=== PATIENT | female | born 1990 | race African-American/Black ===

== ENCOUNTER 2017-12-19 14:18 | Day surgery (SDC) | payer SELFPAY ==
[~2017-12-19 14:18] MED LIST: SUCCINYLCHOLINE CHLORIDE INJ 200 MG/10 ML VIAL ONE
--- NOTE | 2017-12-19 16:12 | ER Document Report ---
ED General - General Chief Complaint: Abscess Stated Complaint: ABSCESS Time Seen by Provider: 12/19/17 15:39 Mode of Arrival: Ambulatory Information source: Patient Notes: Patient is a 27 year old female with PMHx of HTN, DM (not currently on any medication), Hx of MRSA who presents with abscess to beneath both breats that started 3 days ago with associated yellow drainage. She describes the pain as burning. Denies fever, chills, headache, lethargy, n/v/d. She has not taken any medication for this. She has had problems with mutiple abscess requiring drainage in OR, last was in 2014 which was + MRSA and required PICC line for continued antibiotics. Last meal was yesterday, she has had nothing to eat or drink today. TRAVEL OUTSIDE OF THE [place] IN LAST 30 DAYS: No - Related Data Allergies/Adverse Reactions: No Known Allergies Allergy (Verified 07/20/15 09:40) Past Medical History - Social History Smoking Status: Current Every Day Smoker Family History: Reviewed & Not Pertinent, Other - Father: Is positive for diabetes type II. Maternal grandmother: Has breast cancer. The patient's mother is alive without any health problems. - Past Medical History Cardiac Medical History: Denies: Hx Coronary Artery Disease, Hx Heart Attack, Hx Hypertension Pulmonary Medical History: Denies: Hx Asthma, Hx Bronchitis, Hx COPD, Hx Pneumonia, Hx Tuberculosis Neurological Medical History: Denies: Hx Cerebrovascular Accident, Hx Seizures Endocrine Medical History: Reports: Hx Diabetes Mellitus Type 2 Musculoskeltal Medical History: Denies Hx Arthritis Skin Medical History: Reports Hx Cellulitis - abscesses Psychiatric Medical History: Reports: Hx Depression Past Surgical History: Reports: Hx Breast Surgery - cyst/abscess removal. Denies: Hx Hysterectomy, Hx Pacemaker - Immunizations Hx Diphtheria, Pertussis, Tetanus Vaccination: No Review of Systems - Review of Systems Constitutional: See HPI EENT: No symptoms reported Cardiovascular: No symptoms reported Respiratory: No symptoms reported Gastrointestinal: No symptoms reported Genitourinary: No symptoms reported Female Genitourinary: No symptoms reported Musculoskeletal: No symptoms reported Skin: See HPI Hematologic/Lymphatic: No symptoms reported Neurological/Psychological: No symptoms reported Physical Exam - Vital signs Vitals: Temp Pulse Resp BP Pulse Ox 98.5 F 91 20 119/71 93 12/19/17 14:22 12/19/17 14:22 12/19/17 14:22 12/19/17 14:22 12/19/17 14:22 - Notes Notes: PHYSICAL EXAM: CONSTITUTIONAL: Alert and oriented, well-appearing and in no acute distress. HENT: Normocephalic, atraumatic. Nares clear without erythema, septal hematoma or deviation, airway patent. Oropharynx clear without erythema, tonsilar exudate or malocclusion. Trachea midline. Uvula midline. Moist mucous membranes. EYES: Pupils equal round and reactive to light, EOM intact. Sclera anicteric, conjunctiva are normal. No entrapment. NECK: supple without lymphadenopathy. No midline tenderness or paraspinous muscle spasms. No step-offs or deformities. ROM intact. HEART: Regular rate and rhythm without murmurs. LUNGS: CTAB and equal. No wheezes, rales or rhonchi. BACK: nontender, no paraspinous spasm, 5+/5 strengths, DTRs 2+, SLR -. EXTREMITIES: Normal range of motion, no pitting edema. No cyanosis. Cap Refill < 3 seconds. NEURO: Cranial nerves grossly intact. Normal sensory/motor exams. PSYCH: Normal mood, normal affect. SKIN: Warm and dry. Normal turgor. Extensive scarring and thickening tracts consistent with chronic subcutaneous infection with 3-4 areas of tenderness and purulent drainage from tracts/previous scarring Course - Re-evaluation Re-evalutation: 12/19/17 15:57 Patient seen and examined. She is afebrile, non-tachycardic with normal BP, well -hydrated and non-toxic. Extensive scarring and areas of cellulitis vs abscess to anterior chest wall beneath breasts bilaterally. Yellow drainage noted from several areas but dard to determine at bedside where collection of fluid is vs keloidation of previous surgical scars. I have consulted with the supervisory physician per [facility] guidelines, Dr. Medrano who also evaluated patient at bedside and agreed with surgical consultation and management for extensive chest wall/breast abscess. Will start IV, make NPO, obtain labs, CT of chest wall and initiate IV abx. Will obtain surgical consult. 12/19/17 16:[address] Morel, surgeon conductor orchestra who will evaluate patient at bedside. 12/19/17 17:[address] Morel at bedside who will admit for surgery. - Vital Signs Vital signs: Temp Pulse Resp BP Pulse Ox 98.5 F 91 20 119/71 93 12/19/17 14:22 12/19/17 14:22 12/19/17 14:22 12/19/17 14:22 12/19/17 14:22 - Laboratory Result Diagrams: 12/19/17 16:40 12/19/17 16:40 Laboratory results interpreted by me: 12/19/17 16:40 RDW 14.3 H Discharge - Discharge Clinical Impression: Breast abscess, Chest wall abscess Condition: Stable Disposition: SAME DAY SURGERY Admitting Provider: Surgicalist - Dr. Morel Unit Admitted: Surgical Floor
[2017-12-19] MEDS ORDERED: VANCOMYCIN HCL INJ 1000 MG VIAL IV ONE (16:13)
[2017-12-19 16:55] LABS: ABSOLUTE EOSINOPHILS # (AUTO) 0.2 10^3/uL (0.0-0.6); ABSOLUTE LYMPHOCYTES (AUTO) 2.2 10^3/uL (0.5-4.7); ABSOLUTE MONOCYTES (AUTO) 0.4 10^3/uL (0.1-1.4); ABSOLUTE NEUT (AUTO) 5.9 10^3/uL (1.7-8.2); BASOPHILS % (AUTO) 0.5 % (0-2); EOSINOPHILS % (AUTO) 2.1 % (0-6); HEMATOCRIT 38.4 % (36.0-47.0); HEMOGLOBIN 12.7 g/dL (12.0-15.5); LYMPHOCYTES % (AUTO) 25.3 % (13-45); MEAN CORPUSCULAR HEMOGLOBIN 27.1 pg (27.0-33.4); MEAN CORPUSCULAR HGB CONC 33.1 g/dL (32.0-36.0); MEAN CORPUSCULAR VOLUME 82 fl (80-97); MONOCYTES % (AUTO) 4.8 % (3-13); PLATELET COUNT 409 10^3/uL (150-450); RED CELL DISTRIBUTION WIDTH 14.3 % (11.5-14.0); SEGMENTED NEUTROPHILS % (AUTO) 67.3 % (42-78); TOTAL CELLS COUNTED % (AUTO) 100 %; WHITE BLOOD COUNT 8.8 10^3/uL (4.0-10.5)
[2017-12-19] MEDS ORDERED: PIPERACILLIN/TAZOBACTAM 3.375 GM VIAL IV STA (17:09)
[2017-12-19 17:17] LABS: ANION GAP 11 (5-19); BLOOD UREA NITROGEN 13 mg/dL (7-20); CARBON DIOXIDE 28 mmol/L (22-30); CHLORIDE 104 mmol/L (98-107); GLUCOSE 94 mg/dL (75-110); POTASSIUM 4.1 mmol/L (3.6-5.0); SODIUM 143.4 mmol/L (137-145)
[2017-12-19] MEDS ORDERED: ACETAMINOPHEN 100 ML IV ONE (17:21)
[2017-12-19] MEDS ORDERED: PROPOFOL INJ 200 MG/20 ML VIAL IV ONE (17:21)
[2017-12-19] MEDS ORDERED: MIDAZOLAM 2 MG/2 ML INJ ONE (17:21)
[2017-12-19] MEDS ORDERED: LIDOCAINE 2% INJ-PF (20 MG/ML) 10 ML AMPUL ONE (17:21)
[2017-12-19] MEDS ORDERED: ONDANSETRON HCL INJ/PF 4 MG/2 ML SDV ONE (17:21)
[2017-12-19] MEDS ORDERED: FENTANYL CITRATE INJ/PF 100 MCG/2 ML AMPUL ONE ×2 (17:21→18:55)
[2017-12-19] MEDS ORDERED: HYDROMORPHONE HCL INJ/PF 2 MG/ML AMPULE ONE (17:21)
[2017-12-19] MEDS ORDERED: BUPIVACAINE HCL 0.5%-EPI 1:200000 INJ/PF 30 ML VIAL ONE (17:52)
[2017-12-19] MEDS ORDERED: PIPERACILLIN SODIUM/TAZOBACTAM 3.375 GM in NORMAL SALINE 100 ML IV PRN (18:00)
[2017-12-19] MEDS ORDERED: BACITRACIN ZINC OINTMENT 15 GM ONE (18:20)
[2017-12-19] MEDS ORDERED: MEPERIDINE HCL/PF INJ 25 MG/1 ML DISP.SYRIN IV PRN (18:21)
[2017-12-19] MEDS ORDERED: DIPHENHYDRAMINE HCL 50 MG/ML VIAL IV PRN (18:21)
[2017-12-19] MEDS ORDERED: MORPHINE SULFATE 10 MG/ML INJ IV PRN (18:21)
[2017-12-19] MEDS ORDERED: FENTANYL CITRATE INJ/PF 100 MCG/2 ML AMPUL IV PRN ×3 (18:21)
[2017-12-19] MEDS ORDERED: PROMETHAZINE HCL INJ 25 MG/1 ML VIAL IV PRN ×2 (18:21)
[2017-12-19] MEDS ORDERED: ONDANSETRON HCL INJ/PF 4 MG/2 ML SDV IV PRN (18:21)
[2017-12-19] MEDS ORDERED: OXYCODONE-ACETAMINOPHEN 5-325 MG TABLET PO PRN ×2 (18:21)
--- NOTE | 2017-12-19 18:38 | Operative Report ---
Operative Report DATE OF SURGERY: 12/19/17 PREOPERATIVE DIAGNOSIS: multiple subcutaneous abscesses lower anterior chest wall (4: two lower midline above xyfoid process, one right and one left inframammary line) POSTOPERATIVE DIAGNOSIS: same OPERATION: I&D four lower anterior chest wall subcutanous abscesses SURGEON: ROSA GARCIA ANESTHESIA: Other - plus 40 mL 0.5% marcaine with epi TISSUE REMOVED OR ALTERED: cx taken for aerobic, anaerobic, gram stain COMPLICATIONS: none ESTIMATED BLOOD LOSS: <5 ml INTRAOPERATIVE FINDINGS: Four subcutaneous abscesses anterior, lower chest wall PROCEDURE: see dictation
--- NOTE | 2017-12-19 18:54 | OPERATIVE REPORT E ---
Operative Report NAME: DREA WANG : 1990 AGE: 27Y DATE OF SURGERY: 12/19/2017 ROOM: PREOPERATIVE DIAGNOSIS: Multiple anterior lower chest wall subcutaneous abscesses (2 located along the midline over the xiphoid process, 1 along the right inframammary line, 1 along the left inframammary line). POSTOPERATIVE DIAGNOSIS: Multiple anterior lower chest wall subcutaneous abscesses (2 located along the midline over the xiphoid process, 1 along the right inframammary line, 1 along the left inframammary line). OPERATION: Incision and drainage of 4 anterior lower chest wall subcutaneous abscesses. SURGEON: ROSA GARCIA M.D. BUCCARO: None. ESTIMATED BLOOD LOSS: Minimal. Less than 10 mL. COMPLICATIONS: None. ANESTHESIA: General plus 40 mL of 0.25% Marcaine with epinephrine. INDICATION FOR PROCEDURE AND FINDINGS: This is a 27-year-old -[place] female with a history of type 1 diabetes, noncompliance, previous history of multiple mid lower chest wall subcutaneous abscesses infected with MRSA drained in 2014. She presents to the Emergency Room with pain, swelling, drainage, redness of the lower mid anterior chest wall with 4 areas of tenderness, two of those draining foul purulent material. The decision was made today that patient go to surgery undergo incision and drainage of the abscess sites. DESCRIPTION OF PROCEDURE: It was done in the operating room. The patient was placed in supine position. General anesthesia induced by endotracheal intubation. The chest was prepped and draped in the usual fashion and the markings of the 4 subcutaneous abscesses previously placed were maintained. Each subcutaneous abscess area was infiltrated with 0.5% Marcaine with epinephrine and a single small incision about 1/4 inch in diameter were made on each abscess. Only 2 abscesses were found to have a very small amount of purulent material. The remaining abscesses all drained spontaneously. The subcutaneous tissue was opened with a hemostat and 2 of the abscesses located along the midline and the 1 on the right inframammary line were connected together with a single 1/4 inch Livingston drain which was tied to itself using a 2-0 silk suture. The fourth abscess located in the left inframammary line was then opened with a small 1/4 inch incision. A counter incision was made. The subcutaneous issues was explored. No purulent material was obtained and a Jolene drain was inserted through the 2 incisions and tied to itself with a 2-0 silk suture. Each incision was then irrigated with about 60 mL of warm normal saline. Each incision was coated with Bacitracin ointment. Sterile dressings were applied together with a surgical bra. The patient tolerated the procedure well, extubated, transferred to a regular room in satisfactory conditions. DICTATING PHYSICIAN: ROSA GARCIA M.D. [id number] PHY#: [id number] ID: [id number] JOB#: [id number] ACCT: [id number] cc:ROSA GARCIA M.D. > MTDD
[2017-12-19] MEDS ORDERED: FAMOTIDINE 20 MG TABLET PO ONE (20:00)
[2017-12-19] MEDS ORDERED: PIPERACILLIN SODIUM/TAZOBACTAM 3.375 GM in NORMAL SALINE 100 ML IV SCH (22:00)
[2017-12-19] MEDS: MORPHINE SULFATE 10 MG/ML INJ IV PRN (22:37)
[2017-12-19] MEDS: PIPERACILLIN SODIUM/TAZOBACTAM 3.375 GM in NORMAL SALINE 100 ML IV SCH (22:45)
[2017-12-20] MEDS ORDERED: INFLUENZA ADLT QUAD (36MOS+) 2017-18 VAC 0.5 ML SYR IM PRN (01:08)
[2017-12-20] MEDS: MORPHINE SULFATE 10 MG/ML INJ IV PRN ×2 (03:23→12:09)
[2017-12-20] MEDS: PIPERACILLIN SODIUM/TAZOBACTAM 3.375 GM in NORMAL SALINE 100 ML IV SCH ×3 (06:56→22:49)
[2017-12-20] MEDS ORDERED: ENOXAPARIN SODIUM INJ 40 MG/0.4 ML DISP.SYRIN SUBCUT SCH (10:00)
[2017-12-20] MEDS: ENOXAPARIN SODIUM INJ 40 MG/0.4 ML DISP.SYRIN SUBCUT SCH (11:35)
[2017-12-20] MEDS: BACITRACIN ZINC OINTMENT 15 GM TP SCH ×2 (11:38→18:08)
[2017-12-20] MEDS ORDERED: ACETAMINOPHEN 325 MG TABLET PO PRN (12:23)
--- NOTE | 2017-12-20 12:29 | PDOC PROGRESS REPORT ---
Subjective Progress Note for:: 12/20/17 Subjective:: mild chest wall pain Reason For Visit: ABSCESS OF BREAST, ABSCESS OF CHEST WALL Physical Exam Vital Signs: Temp Pulse Resp BP Pulse Ox 98.5 F 78 17 110/60 100 12/20/17 11:27 12/20/17 11:27 12/20/17 11:27 12/20/17 11:27 12/20/17 11:27 Intake & Output 12/19/17 12/20/17 12/21/17 06:59 06:59 06:59 Intake Total 1230 Output Total 605 Balance 625 Weight 74.9 kg Respiratory exam: PRESENT: chest wall tenderness - at drained abscess sites, clean, minimal serosanguinous drainage without odor Results Laboratory Results: 12/19/17 16:40 12/19/17 16:40 12/19/17 12/19/17 16:40 16:40 WBC 8.8 RBC 4.70 Hgb 12.7 Hct 38.4 MCV 82 MCH 27.1 MCHC 33.1 RDW 14.3 H Plt Count 409 Seg Neutrophils % 67.3 Lymphocytes % 25.3 Monocytes % 4.8 Eosinophils % 2.1 Basophils % 0.5 Absolute Neutrophils 5.9 Absolute Lymphocytes 2.2 Absolute Monocytes 0.4 Absolute Eosinophils 0.2 Absolute Basophils 0.0 Sodium 143.4 Potassium 4.1 Chloride 104 Carbon Dioxide 28 Anion Gap 11 BUN 13 Creatinine 0.84 Est GFR ( Amer) > 60 Est GFR (Non-Af Amer) > 60 Glucose 94 Calcium 10.0 Assessment & Plan - Diagnosis (1) Hidrosadenitis Is this a current diagnosis for this admission?: Yes - Plan Summary Plan Summary: POD #1 post I&D multiple anterior chest wall abscesses (four) VSS, AF PE shows clan drained sites Cx pending: gram stain shows GPC and GNR P/ Change to PO pain meds Heplock IVF continue Zosyn/Vanco consult hospitalist for her diabetes treatment and compliance
[2017-12-20] MEDS ORDERED: INSULIN LISPRO 100 UNIT/ML 3 ML VIAL SUBCUT PRN (17:02)
[2017-12-20] MEDS ORDERED: DEXTROSE 40% GEL 15 GM TUBE PO PRN ×2 (17:02)
[2017-12-20] MEDS ORDERED: GLUCAGON,HUMAN RECOMB 1 MG INJ IM PRN (17:02)
[2017-12-20] MEDS ORDERED: DEXTROSE 50%-WATER 25 GM/50 ML DISP.SYRIN IV PRN ×2 (17:02)
--- NOTE | 2017-12-20 17:17 | PDOC CONSULTATION ---
Consultation Consult Date: 12/20/17 Attending physician:: ROSA GARCIA Consult reason:: Concern for DM Type 2 History of Present Illness Admission Date/PCP: SURGICAL SURGICALIST History of Present Illness: Pt is a 27-year-old female that presented to the hospital under surgeries care who was underwent I&D of left breast abscess. Surgery requested consult due to concern for diabetes. Patient reports that when she was 12 she weighed 210 pounds was diagnosed with type 2 diabetes. Patient's mother at that time states that patient was placed on insulin however as she grew older and lost weight she did not require insulin. Mother reports that she would go to her doctor's office and he would tell her that she no longer required insulin. Surgery requested consult due to patient's history of diabetes type 2 and patient not being on insulin. Denies any nausea vomiting diarrhea or constipation. Patient does admit to increased thirst and urination. Patient reports that she has not checked her blood glucose in over 10 years. Past Medical History Cardiac Medical History: Denies: Coronary Artery Disease, Myocardial Infarction, Hypertension Pulmonary Medical History: Denies: Asthma, Bronchitis, Chronic Obstructive Pulmonary Disease (COPD), Pneumonia, Tuberculosis Neurological Medical History: Denies: Seizures Endocrine Medical History: Reports: Diabetes Mellitus Type 2 Musculoskeltal Medical History: Denies: Arthritis Psychiatric Medical History: Reports: Depression Hematology: Reports: Anemia - Possible iron deficiency anemia Past Surgical History Past Surgical History: Reports: Other - incision drainage of chest wall MRSA abscesses in 2014 Denies: Hysterectomy, Pacemaker Social History Smoking Status: Current Every Day Smoker Cigarettes Packs Per Day: 0.5 Number of Years Smokin Last Time Smoked: 12/18/2017 Frequency of Alcohol Use: None Hx Recreational Drug Use: No Drugs: None Hx Prescription Drug Abuse: No - Advance Directive Resuscitation Status: Full Code Family History Family History: Reviewed & Not Pertinent, Other - Father: Is positive for diabetes type II. Maternal grandmother: Has breast cancer. The patient's mother is alive without any health problems. Parental Family History Reviewed: Yes Children Family History Reviewed: Yes Sibling(s) Family History Reviewed.: Yes Medication/Allergy Allergies/Adverse Reactions: No Known Allergies Allergy (Verified 07/20/15 09:40) Review of Systems Constitutional: ABSENT: chills, fever(s), headache(s), weight gain, weight loss Eyes: ABSENT: visual disturbances Ears: ABSENT: hearing changes Cardiovascular: ABSENT: chest pain, dyspnea on exertion, edema, orthropnea, palpitations Respiratory: ABSENT: cough, hemoptysis Gastrointestinal: ABSENT: abdominal pain, constipation, diarrhea, hematemesis, hematochezia, nausea, vomiting Genitourinary: ABSENT: dysuria, hematuria Musculoskeletal: ABSENT: joint swelling Integumentary: ABSENT: rash, wounds Psychiatric: ABSENT: anxiety, depression, homidical ideation, suicidal ideation Endocrine: PRESENT: polydipsia, polyphagia, polyuria Hematologic/Lymphatic: ABSENT: easy bleeding, easy bruising Physical Exam Vital Signs: Temp Pulse Resp BP Pulse Ox 98.5 F 78 17 110/60 100 12/20/17 11:27 12/20/17 11:27 12/20/17 11:27 12/20/17 11:27 12/20/17 11:27 Intake & Output 12/19/17 12/20/17 12/21/17 06:59 06:59 06:59 Intake Total 1230 1769 Output Total 605 Balance 625 1769 Weight 74.9 kg General appearance: PRESENT: no acute distress, well-developed, well-nourished Head exam: PRESENT: atraumatic, normocephalic Eye exam: PRESENT: conjunctiva pink, EOMI. ABSENT: scleral icterus Ear exam: PRESENT: normal external ear exam Mouth exam: PRESENT: moist, tongue midline Neck exam: ABSENT: carotid bruit, JVD, lymphadenopathy, thyromegaly Respiratory exam: PRESENT: clear to auscultation davon. ABSENT: rales, rhonchi, wheezes Cardiovascular exam: PRESENT: RRR. ABSENT: diastolic murmur, rubs, systolic murmur Pulses: PRESENT: normal dorsalis pedis pul Vascular exam: PRESENT: normal capillary refill GI/Abdominal exam: PRESENT: normal bowel sounds, soft. ABSENT: distended, guarding, mass, organolmegaly, rebound, tenderness Rectal exam: PRESENT: deferred Extremities exam: PRESENT: full ROM. ABSENT: calf tenderness, clubbing, pedal edema Musculoskeletal exam: PRESENT: full ROM Neurological exam: PRESENT: alert, awake, oriented to person, oriented to place , oriented to time, oriented to situation, CN II-XII grossly intact. ABSENT: motor sensory deficit Psychiatric exam: PRESENT: appropriate affect, normal mood. ABSENT: homicidal ideation, suicidal ideation Skin exam: PRESENT: dry, intact, warm. ABSENT: cyanosis, rash Results Laboratory Results: 12/19/17 16:40 12/19/17 16:40 12/19/17 16:40 Sodium 143.4 Potassium 4.1 Chloride 104 Carbon Dioxide 28 Anion Gap 11 BUN 13 Creatinine 0.84 Est GFR ( Amer) > 60 Est GFR (Non-Af Amer) > 60 Glucose 94 Calcium 10.0 Assessment & Plan - Diagnosis (1) Anterior wall abscess Is this a current diagnosis for this admission?: Yes Plan: S/P I and D multiple anterior chest wall abscesses: Pt currently on antibiotics. Per Surgery's recommendation. (2) History of diabetes type 2 Is this a current diagnosis for this admission?: Yes Plan: Will check HBGA1C. Will place on SSI. (3) Iron deficiency anemia Is this a current diagnosis for this admission?: Yes Plan: Will place on Iron replacement. (4) Obesity (BMI 30.0-34.9) Is this a current diagnosis for this admission?: Yes Plan: Will encourage dietary changes. (5) DVT prophylaxis Is this a current diagnosis for this admission?: Yes Plan: Lovenox. - Time Time Spent: 30 to 50 Minutes
[2017-12-20] MEDS: VANCOMYCIN HCL 1,000 MG in DEXTROSE 5%-WATER 250 ML IV SCH (18:07)
[2017-12-20] MEDS: FERROUS SULFATE 325 MG TABLET PO SCH (18:07)
[2017-12-20] MEDS: TRAMADOL HCL 50 MG TABLET PO PRN (22:49)
[2017-12-21] MEDS: VANCOMYCIN HCL 1,000 MG in DEXTROSE 5%-WATER 250 ML IV SCH (05:24)
[2017-12-21] MEDS: PIPERACILLIN SODIUM/TAZOBACTAM 3.375 GM in NORMAL SALINE 100 ML IV SCH ×2 (05:24→14:50)
[2017-12-21 05:26] LABS: ABSOLUTE BASOPHILS # (AUTO) 0.1 10^3/uL (0.0-0.2); ABSOLUTE EOSINOPHILS # (AUTO) 0.2 10^3/uL (0.0-0.6); ABSOLUTE LYMPHOCYTES (AUTO) 3.6 10^3/uL (0.5-4.7); ABSOLUTE MONOCYTES (AUTO) 0.9 10^3/uL (0.1-1.4); ABSOLUTE NEUT (AUTO) 6.6 10^3/uL (1.7-8.2); BASOPHILS % (AUTO) 0.5 % (0-2); EOSINOPHILS % (AUTO) 1.4 % (0-6); HEMATOCRIT 31.8 % (36.0-47.0); MEAN CORPUSCULAR HEMOGLOBIN 26.4 pg (27.0-33.4); MEAN CORPUSCULAR HGB CONC 32.4 g/dL (32.0-36.0); MEAN CORPUSCULAR VOLUME 82 fl (80-97); MONOCYTES % (AUTO) 7.8 % (3-13); PLATELET COUNT 345 10^3/uL (150-450); RED CELL DISTRIBUTION WIDTH 14.2 % (11.5-14.0); SEGMENTED NEUTROPHILS % (AUTO) 58.3 % (42-78); TOTAL CELLS COUNTED % (AUTO) 100 %; WHITE BLOOD COUNT 11.3 10^3/uL (4.0-10.5)
[2017-12-21 05:29] LABS: HEMOGLOBIN 10.3 g/dL (12.0-15.5)
[2017-12-21] MEDS ORDERED: VANCOMYCIN HCL INJ 1000 MG VIAL ONE (05:46)
[2017-12-21 05:57] LABS: ANION GAP 11 (5-19); BLOOD UREA NITROGEN 14 mg/dL (7-20); CALCIUM 9.1 mg/dL (8.4-10.2); CARBON DIOXIDE 25 mmol/L (22-30); CHLORIDE 106 mmol/L (98-107); GLUCOSE 97 mg/dL (75-110); MAGNESIUM 2.2 mg/dL (1.6-2.3); PHOSPHORUS 4.3 mg/dL (2.5-4.5); POTASSIUM 4.5 mmol/L (3.6-5.0); SODIUM 141.6 mmol/L (137-145)
[2017-12-21] MEDS: TRAMADOL HCL 50 MG TABLET PO PRN (10:57)
[2017-12-21] MEDS: ENOXAPARIN SODIUM INJ 40 MG/0.4 ML DISP.SYRIN SUBCUT SCH (10:57)
[2017-12-21] MEDS: FERROUS SULFATE 325 MG TABLET PO SCH (10:57)
[2017-12-21] MEDS: BACITRACIN ZINC OINTMENT 15 GM TP SCH (10:58)
--- NOTE | 2017-12-21 11:03 | PDOC PROGRESS REPORT ---
Subjective Progress Note for:: 12/21/17 Subjective:: Pt states that she is having some pain in her chest. Pt states that her drains are still in place. Reason For Visit: ABSCESS OF BREAST, ABSCESS OF CHEST WALL Physical Exam Vital Signs: Temp Pulse Resp BP Pulse Ox 98.4 F 65 12 104/66 100 12/21/17 07:10 12/21/17 07:10 12/21/17 07:10 12/21/17 07:10 12/21/17 07:10 Intake & Output 12/20/17 12/21/17 12/22/17 06:59 06:59 06:59 Intake Total 1230 2909 280 Output Total 605 700 Balance 625 2209 280 Weight 74.9 kg 80.4 kg General appearance: PRESENT: no acute distress, well-developed, well-nourished Head exam: PRESENT: atraumatic, normocephalic Eye exam: PRESENT: conjunctiva pink, EOMI. ABSENT: scleral icterus Ear exam: PRESENT: normal external ear exam Mouth exam: PRESENT: moist, tongue midline Neck exam: ABSENT: carotid bruit, JVD, lymphadenopathy, thyromegaly Respiratory exam: PRESENT: clear to auscultation davon. ABSENT: rales, rhonchi, wheezes Cardiovascular exam: PRESENT: RRR. ABSENT: diastolic murmur, rubs, systolic murmur Pulses: PRESENT: normal dorsalis pedis pul Vascular exam: PRESENT: normal capillary refill GI/Abdominal exam: PRESENT: normal bowel sounds, soft. ABSENT: distended, guarding, mass, organolmegaly, rebound, tenderness Rectal exam: PRESENT: deferred Extremities exam: PRESENT: full ROM. ABSENT: calf tenderness, clubbing, pedal edema Neurological exam: PRESENT: alert, awake, oriented to person, oriented to place , oriented to time, oriented to situation, CN II-XII grossly intact. ABSENT: motor sensory deficit Psychiatric exam: PRESENT: appropriate affect, normal mood. ABSENT: homicidal ideation, suicidal ideation Skin exam: PRESENT: dry, intact, warm. ABSENT: cyanosis, rash Results Laboratory Results: 12/21/17 04:53 12/21/17 04:53 12/21/17 12/21/17 04:53 04:53 WBC 11.3 H RBC 3.90 Hgb 10.3 L D Hct 31.8 L MCV 82 MCH 26.4 L MCHC 32.4 RDW 14.2 H Plt Count 345 Seg Neutrophils % 58.3 Lymphocytes % 32.0 Monocytes % 7.8 Eosinophils % 1.4 Basophils % 0.5 Absolute Neutrophils 6.6 Absolute Lymphocytes 3.6 Absolute Monocytes 0.9 Absolute Eosinophils 0.2 Absolute Basophils 0.1 Sodium 141.6 Potassium 4.5 Chloride 106 Carbon Dioxide 25 Anion Gap 11 BUN 14 Creatinine 0.92 Est GFR ( Amer) > 60 Est GFR (Non-Af Amer) > 60 Glucose 97 Calcium 9.1 Phosphorus 4.3 Magnesium 2.2 12/19/17 18:10 Chest - Chest Wall Gram Stain - Final Assessment & Plan - Diagnosis (1) Anterior wall abscess Is this a current diagnosis for this admission?: Yes Plan: S/P I and D multiple anterior chest wall abscesses comp located by Corynebacterium and gram-positive cocci: Pt currently on vancomycin and Zosyn. Per Surgery's recommendation. (2) History of diabetes type 2 Is this a current diagnosis for this admission?: Yes Plan: HBGA1C pending. SSI. (3) Iron deficiency anemia Is this a current diagnosis for this admission?: Yes Plan: Will continue Iron replacement. (4) Obesity (BMI 30.0-34.9) Is this a current diagnosis for this admission?: Yes Plan: Will encourage dietary changes. (5) DVT prophylaxis Is this a current diagnosis for this admission?: Yes Plan: Lovenox.
--- NOTE | 2017-12-21 16:14 | PDOC DISCHARGE SUMMARY ---
General - Admit/Disc Date/PCP Admission Date/Primary Care Provider: SURGICAL SURGICALIST Discharge Date: 12/21/17 - Discharge Diagnosis (1) abscess of inframammary Is this a current diagnosis for this admission?: Yes Summary: Patient was admitted with abscesses of chest wall at inframammary regions of both breast.Taken to [facility] 12/19/2017 for I & D of multiple abscesses. Drains ( marcelo) left in. Patient is doing well and is discharged home with instructions for wound care, and antibx/analgesics. Wll follow-up with [facility] in 7-10 days. (2) Anterior wall abscess Is this a current diagnosis for this admission?: Yes - Additional Information Resuscitation Status: Full Code Discharge Diet: Regular Discharge Activity: Activity As Tolerated, Balance Activity w/Rest Prescriptions: Tramadol HCl [Ultram 50 mg Tablet] 50 mg PO Q6HP PRN #20 tablet PRN Reason: Amox Tr/Potassium Clavulanate [Augmentin 875-125 mg Tablet] 1 tab PO BID #20 tablet Home Medications: Acetaminophen [Tylenol 325 mg Tablet] 325 mg PO Q4HP PRN tablet 12/21/17 Amox Tr/Potassium Clavulanate [Augmentin 875-125 mg Tablet] 1 tab PO BID #20 tablet 12/21/17 Bacitracin Zinc [Bacitracin Oint 15 gm] 1 applic TP BID tube 12/21/17 Ferrous Sulfate [Feosol 325 mg Tablet] 325 mg PO BIDPCBS tablet 12/21/17 Tramadol HCl [Ultram 50 mg Tablet] 50 mg PO Q6HP PRN #20 tablet 12/21/17 History of Present Illness History of Present Illness: Patient was admitted with abscesses of chest wall at inframammary regions of both breasts.Taken to [facility] 12/19/2017 for I & D of multiple abscesses. Drains ( marcelo) left in. Patient is doing well and is discharged home with instructions for wound care, and antibx/analgesics. Wll follow-up with [facility] in 7-10 days. Hospital Course Hospital Course: Patient was admitted with abscesses of chest wall at inframammary regions of both breast.Taken to [facility] 12/19/2017 for I & D of multiple abscesses. Drains ( marcelo) left in. Patient is doing well and is discharged home with instructions for wound care, and antibx/analgesics. Wll follow-up with [facility] in 7-10 days. Physical Exam Vital Signs: Temp Pulse Resp BP Pulse Ox 98.5 F 74 12 119/68 100 12/21/17 11:14 12/21/17 11:14 12/21/17 11:14 12/21/17 11:14 12/21/17 11:14 Intake & Output 12/20/17 12/21/17 12/22/17 06:59 06:59 06:59 Intake Total 1230 2909 930 Output Total 605 700 Balance 625 2209 930 Weight 74.9 kg 80.4 kg General appearance: PRESENT: no acute distress Head exam: PRESENT: atraumatic, normocephalic Eye exam: PRESENT: conjunctiva pink Mouth exam: PRESENT: moist, neck supple Neck exam: PRESENT: full ROM. ABSENT: JVD, lymphadenopathy, tenderness, thyromegaly, tracheal deviation Respiratory exam: PRESENT: clear to auscultation davon, unlabored Cardiovascular exam: PRESENT: RRR GI/Abdominal exam: PRESENT: normal bowel sounds, soft. ABSENT: distended, guarding, hernia, mass, tenderness Additonal comments: Drains in place through the connecting abscesses of the inframammary regions of both breasts Skin exam: PRESENT: other - Drains (marcelo) in place through the connecting abscesses of the inframammary regions of both breasts Results Laboratory Results: 12/21/17 04:53 12/21/17 04:53 12/21/17 12/21/17 04:53 04:53 WBC 11.3 H RBC 3.90 Hgb 10.3 L D Hct 31.8 L MCV 82 MCH 26.4 L MCHC 32.4 RDW 14.2 H Plt Count 345 Seg Neutrophils % 58.3 Lymphocytes % 32.0 Monocytes % 7.8 Eosinophils % 1.4 Basophils % 0.5 Absolute Neutrophils 6.6 Absolute Lymphocytes 3.6 Absolute Monocytes 0.9 Absolute Eosinophils 0.2 Absolute Basophils 0.1 Sodium 141.6 Potassium 4.5 Chloride 106 Carbon Dioxide 25 Anion Gap 11 BUN 14 Creatinine 0.92 Est GFR ( Amer) > 60 Est GFR (Non-Af Amer) > 60 Glucose 97 Calcium 9.1 Phosphorus 4.3 Magnesium 2.2 12/19/17 18:10 Chest - Chest Wall Gram Stain - Final 12/19/17 18:10 Chest - Chest Wall Wound Culture - Final Corynebacterium Species Peptostreptococcus Species Prevotella Species 12/19/17 18:10 Chest - Not Specified Gram Stain - Final 12/19/17 18:10 Chest - Not Specified Wound Culture - Final Corynebacterium Species Peptostreptococcus Species Prevotella Species 12/19/17 16:40 Breast - Abscess Gram Stain - Final Plan Time Spent: Less than 30 Minutes
[2017-12-21 16:24] VITALS: BP 110/63
== END 2017-12-21 17:13 | disposition home or self-care (01) ==
LOC: ER 14:18 → SC 17:11 → 4S 19:35 → SC 12-21 17:13
PROVIDERS: ATTEND Surgery
PROC: 0H95XZZ Drainage of Chest Skin, External Approach (ICD-10-PCS; principal; 2017-12-19 18:30)
DX: L02.213 Cutaneous abscess of chest wall (principal); E11.9 Type 2 diabetes mellitus without complications; D50.9 Iron deficiency anemia, unspecified; F17.210 Nicotine dependence, cigarettes, uncomplicated
CPT/HCPCS: 99284; 96365; 36415; 87040; 87070; 87205; 82962; 83735; 84100; 85025; 85730; 87075; 87077; 80048; 87186; 83036; 90686; 10061; L8000; J2250; J3490 ×3; J3010; J2270 ×2; J1650 ×2; J1170; J0330; J2405; J7060 ×2; J2704; J3370 ×3; J2543 ×3; J0131; 400